=== PATIENT | male | born 1935 | race Caucasian/White ===

== ENCOUNTER → 2019-07-11 | Outpatient (CLI) | payer MEDICARE, BC | END | disposition home or self-care (01) | LOC: RAD 10:11 | PROVIDERS: ATTEND Urology | DX: C61 Malignant neoplasm of prostate (principal) | CPT/HCPCS: 78306 ×2; A9503 ==

== ENCOUNTER → 2019-11-30 | Outpatient (CLI) | payer MEDICARE, BC ==
[~2019-11-30] MED LIST: OMNIPAQUE 350 MG/ML, 150 ML BOTTLE ONE
== END | disposition home or self-care (01) ==
LOC: CFH 13:46
PROVIDERS: ATTEND Urology
DX: K76.0 Fatty (change of) liver, not elsewhere classified (principal); K57.30 Diverticulosis of large intestine without perforation or abscess without bleeding; I70.0 Atherosclerosis of aorta; N32.89 Other specified disorders of bladder; N40.0 Benign prostatic hyperplasia without lower urinary tract symptoms; Z85.46 Personal history of malignant neoplasm of prostate
CPT/HCPCS: 74178; Q9967

== ENCOUNTER 2020-02-12 14:57 | Inpatient (IN) | payer MEDICARE, BC ==
[~2020-02-12] VITALS: Ht 172.7 cm; Wt 78.3 kg
--- NOTE | 2020-02-12 14:58 | NUR ---
patient arrives from home with mayito with a recent new onset of confusion. it began last night, and states he couldn't use remote, and was forgetting how to do basic chores. he went to bed, but it began again today. he has a new onset of prostate cancer and was about to begin treatment for that.
[2020-02-12 15:58] LABS: BASOPHILS # (AUTO) 0.03 x10^3/uL (0-0.1); BASOPHILS % (AUTO) 1 % (0-1); EOSINOPHILS # (AUTO) 0.12 x10^3/uL (0-0.4); EOSINOPHILS % (AUTO) 2 % (1-7); LYMPHOCYTES # (AUTO) 1.16 x10^3/uL (1-3.4); LYMPHOCYTES % (AUTO) 21 % (22-44); MD NO; MEAN CORPUSCULAR HGB CONC 32.5 g/dL (33.2-36.2); MEAN CORPUSCULAR VOLUME 95.4 fL (81-97); MEAN PLATELET VOLUME 7.6 fL (7.4-10.4); MONOCYTES # (AUTO) 0.59 x10^3/uL (0.2-0.8); MONOCYTES % (AUTO) 11 % (2-9); NEUTROPHILS # (AUTO) 3.74 x10^3/uL (1.8-6.8); NEUTROPHILS % (AUTO) 66 % (42-75); PLATELET COUNT 197 x10^3/uL (130-400); RED BLOOD COUNT 5.13 x10^6/uL (4.38-5.82); RED CELL DISTRIBUTION WIDTH 13.5 % (9.4-14.8)
[2020-02-12 16:09] LABS: ANION GAP 4 mmol/L (5-15); CALCIUM 8.8 mg/dL (8.5-10.1); CHLORIDE 109 mmol/L (98-107)
[2020-02-12 16:17] LABS: CREATININE 0.93 mg/dL (0.7-1.3); TROPONIN I < 0.015 ng/mL (0.000-0.045)
--- NOTE | 2020-02-12 17:01 | NUR ---
patient' s son here. patient left for ct scan
--- NOTE | 2020-02-12 18:59 | NUR ---
RECEIVED REPORT FROM MULUGETA. PT SITTING IN BED, ASKING FOR FOOD, NO SIGNS OF DISTRESS.
[2020-02-12] MEDS ORDERED: SODIUM CHLORIDE FLUSH 10ML SYR IVF PRN (19:00)
[2020-02-12 19:30] LABS: MICROSCOPIC AUTO
[2020-02-12] MEDS ORDERED: LABETALOL 5MG/ML, 20ML IVPush PRN (20:00)
[2020-02-12] MEDS ORDERED: ONDANSETRON 2MG/ML, 2ML IVPush PRN (20:00)
[2020-02-12] MEDS ORDERED: MELATONIN 5 MG TABLET PO PRN (20:00)
[2020-02-12] MEDS ORDERED: ACETAMINOPHEN 325 MG TABLET PO PRN (20:00)
--- NOTE | 2020-02-12 20:18 | NUR ---
PT PROVIDED WITH FOOD, ABLE TO STAND TO USE URINAL, SITTING IN BED, PROVIDED WITH CALL LIGHT, WATCHING TV, ALL NEEDS MET AT THIS TIME.
[2020-02-12 20:36] LABS: ALBUMIN 4.1 g/dL (3.4-5.0); BILIRUBIN, DIRECT 0.2 mg/dL (0.1-0.2)
--- NOTE | 2020-02-12 20:42 | NUR ---
REPORT GIVEN TO FLOOR RN.
[2020-02-12 20:50] LABS: AMPHETAMINE SCREEN, URINE Negative (Negative); BARBITURATE SCREEN, URINE Negative (Negative); BENZODIAZEPINE SCREEN, URINE Negative (Negative); CANNABINOID SCREEN, URINE Negative (Negative); COCAINE SCREEN, URINE Negative (Negative); METHADONE SCREEN, URINE Negative (Negative); OPIATE SCREEN, URINE Negative (Negative)
[2020-02-12 21:01] LABS: BILIRUBIN,INDIRECT 0.7 mg/dL (0.0-2.0); BILIRUBIN,TOTAL 0.9 mg/dL (0.2-1.0); TOTAL PROTEIN 7.5 g/dL (6.4-8.2)
[2020-02-12] MEDS: THIAMINE 100MG TABLET PO SCH (21:54)
[2020-02-12 22:14] VITALS: BP 158/72
[2020-02-13 01:30] VITALS: BP 146/64
[2020-02-13 06:20] LABS: CHOL/HDL RATIO 3.5; LDL/HDL RATIO 2.1 (0.5-3.0)
[2020-02-13 07:25] VITALS: BP 169/79
[2020-02-13] MEDS: THIAMINE 100MG TABLET PO SCH ×2 (08:09→20:11)
[2020-02-13] MEDS ORDERED: GADOTERATE 7.5 MMOL/15 ML SYR ONE (09:51)
[2020-02-13] MEDS ORDERED: LORazepam 1MG TABLET PO PRN ×2 (13:30)
[2020-02-13] MEDS ORDERED: LORazepam 2 MG/ML, 1ML IV PRN ×3 (13:30)
[2020-02-13] MEDS ORDERED: LORazepam 0.5MG TABLET PO PRN (13:30)
[2020-02-13 14:00] VITALS: BP_SYST 123; BP_SYST 162; BP_DIAS 75; BP_DIAS 77
[2020-02-13] MEDS: CLOPIDOGREL 75 MG TABLET PO SCH (14:12)
[2020-02-13] MEDS ORDERED: OMNIPAQUE 350 MG/ML, 100ML BOTTLE ONE (15:07)
[2020-02-13 18:44] VITALS: BP 156/71
[2020-02-13] MEDS ORDERED: ATORVASTATIN 40 MG TABLET PO SCH (21:00)
[2020-02-14 01:53] VITALS: BP 149/64
[2020-02-14 07:36] VITALS: BP 154/70
[2020-02-14] MEDS ORDERED: ASPIRIN 81 MG TABLET CHEW PO SCH (09:00)
[2020-02-14] MEDS: CLOPIDOGREL 75 MG TABLET PO SCH (09:11)
[2020-02-14] MEDS: THIAMINE 100MG TABLET PO SCH (09:11)
[2020-02-14 13:13] VITALS: BP 118/69
[2020-02-14] MEDS ORDERED: ATOR40TA78 PO (14:10)
[2020-02-14] MEDS ORDERED: ASPI-515 PO (14:10)
[2020-02-14] MEDS ORDERED: CLOP75TA PO (14:10)
== END 2020-02-14 15:48 | disposition home health service (06) | DRG 64 ==
LOC: ED 16:35 → EDIP 18:33 → 4EST 21:19
PROVIDERS: ADMIT Family Medicine; ATTEND Hospitalist
DX: I63.40 Cerebral infarction due to embolism of unspecified cerebral artery (principal); G93.41 Metabolic encephalopathy; C61 Malignant neoplasm of prostate; E78.5 Hyperlipidemia, unspecified; F10.10 Alcohol abuse, uncomplicated; G31.84 Mild cognitive impairment of uncertain or unknown etiology; H91.90 Unspecified hearing loss, unspecified ear; I10 Essential (primary) hypertension; I65.22 Occlusion and stenosis of left carotid artery; J32.0 Chronic maxillary sinusitis; R31.29 Other microscopic hematuria; Z79.02 Long term (current) use of antithrombotics/antiplatelets; Z79.82 Long term (current) use of aspirin; Z85.46 Personal history of malignant neoplasm of prostate; Z86.73 Personal history of transient ischemic attack (TIA), and cerebral infarction without residual deficits; Z87.891 Personal history of nicotine dependence
CPT/HCPCS: 36415; 70450; 70498; 70553; 71045; 80048; 80061; 80076; 80307; 81001; 82140; 82607; 84443; 84484; 85025; 93005; 93306; 93356; 93880; G0378; Q9967; 92523-GN; A9575

== ENCOUNTER 2020-08-18 22:45 | Observation (INO) | payer MEDICARE, BC ==
[~2020-08-18] VITALS: Ht 175.3 cm; Wt 72.1 kg
[~2020-08-18 22:45] MED LIST changes: +APIX5TAB PO; +ASPI-515 PO; +ATOR40TA78 PO; +CLOP75TA PO; +METO25TA91 PO; -OMNIPAQUE 350 MG/ML, 150 ML BOTTLE ONE
--- NOTE | 2020-08-18 23:14 | NUR ---
Patient presents to ER c/o CP which started a couple hours ago. Patient states he's had this pain before when he was dx with afib last year in February. Patient states he was nauseous earlier when it started. Denies SOB. Pain does not radiate and is worse with palpation. Patient is in NAD. Respirations even and unlabored.
[2020-08-18] MEDS ORDERED: MORPHINE SULFATE 4 MG/ML, 1ML ONE (23:17)
[2020-08-18] MEDS ORDERED: ONDANSETRON 2MG/ML, 2ML ONE (23:17)
[2020-08-18] MEDS ORDERED: MORPHINE SULFATE 4 MG/ML, 1ML IVPush ONE (23:30)
[2020-08-18] MEDS ORDERED: ONDANSETRON 2MG/ML, 2ML IVPush ONE (23:30)
[2020-08-18 23:52] LABS: BASOPHILS % (AUTO) 1 % (0-1); EOSINOPHILS % (AUTO) 0 % (1-7); LYMPHOCYTES % (AUTO) 4 % (22-44); MEAN CORPUSCULAR HEMOGLOBIN 30.9 pg (27.5-34.5); MEAN CORPUSCULAR HGB CONC 33.7 g/dL (33.2-36.2); MONOCYTES % (AUTO) 3 % (2-9); NEUTROPHILS % (AUTO) 92 % (42-75); PLATELET COUNT 194 x10^3/uL (130-400); RED BLOOD COUNT 5.16 x10^6/uL (4.38-5.82); RED CELL DISTRIBUTION WIDTH 13.5 % (9.4-14.8)
[2020-08-19 00:02] LABS: ALBUMIN 3.9 g/dL (3.4-5.0); ANION GAP 5 mmol/L (5-15); CALCIUM 8.9 mg/dL (8.5-10.1); CHLORIDE 106 mmol/L (98-107); CREATININE 0.87 mg/dL (0.7-1.3)
[2020-08-19 00:05] LABS: TROPONIN I < 0.015 ng/mL (0.000-0.045)
[2020-08-19 00:19] LABS: MD SCAN
--- NOTE | 2020-08-19 01:00 | NUR ---
PATIENT UPDATED ON PLAN OF CARE. NO NOTED ADDITIONAL NEEDS AT THIS TIME. SON HAS LEFT ROOM FOR HOME. UPDATED FAMILY ON DISCHARGE INFORMATION, AND VISITATION POLICY. NO ADDITIONAL QUESTIONS. PATIENT STATED THAT THE MORPHINE DID WORK, BUT DID NOT ELIMINATE HIS PAIN.
[2020-08-19 01:09] LABS: ALBUMIN 3.9 g/dL (3.4-5.0); BILIRUBIN, DIRECT 0.3 mg/dL (0.1-0.2)
[2020-08-19 01:11] LABS: BILIRUBIN,INDIRECT 0.7 mg/dL (0.0-2.0); TOTAL PROTEIN 7.3 g/dL (6.4-8.2)
[2020-08-19] MEDS ORDERED: LABETALOL 5MG/ML, 20ML IVPush ONE (01:30)
[2020-08-19] MEDS ORDERED: NITROGLYCERIN OINT 2%, 1GM TP ONE ×2 (01:30→01:47)
[2020-08-19] MEDS ORDERED: MORPHINE SULFATE 4 MG/ML, 1ML IVPush ONE (01:30)
[2020-08-19] MEDS ORDERED: ONDANSETRON 2MG/ML, 2ML IVPush ONE (01:30)
[2020-08-19] MEDS ORDERED: ONDANSETRON 2MG/ML, 2ML ONE (01:46)
[2020-08-19] MEDS ORDERED: MORPHINE SULFATE 4 MG/ML, 1ML ONE (01:46)
[2020-08-19] MEDS ORDERED: LABETALOL 5MG/ML, 20ML ONE (01:47)
[2020-08-19] MEDS ORDERED: ENALAPRILAT 1.25 MG/ML, 2ML IVPush PRN (03:00)
[2020-08-19] MEDS ORDERED: ACETAMINOPHEN 325 MG TABLET PO PRN ×2 (03:00→09:00)
[2020-08-19] MEDS ORDERED: morphine SULFATE 10 MG/ML, 1ML IV PRN (03:00)
[2020-08-19] MEDS ORDERED: NITROGLYCERIN 0.4 MG BOTTLE (25 TABS) SL PRN (03:00)
[2020-08-19] MEDS ORDERED: ONDANSETRON 2MG/ML, 2ML IVPush PRN (03:00)
--- NOTE | 2020-08-19 03:04 | NUR ---
PATIENT RESTING IN BED, NO NOTED NEEDS AT THIS TIME. WILL CONTINUE TO MONITOR.
[2020-08-19] MEDS: NITROGLYCERIN OINT 2%, 1GM TP SCH ×3 (03:30→15:30)
[2020-08-19 04:04] VITALS: BP 168/72
[2020-08-19 04:35] VITALS: BP 168/72
[2020-08-19] MEDS ORDERED: METOPROLOL SUCCINATE 25 MG TAB.ER.24H PO SCH (06:00)
[2020-08-19 07:21] VITALS: BP 133/74
[2020-08-19] MEDS: APIXABAN 5 MG TABLET PO SCH ×2 (08:43→17:47)
[2020-08-19 08:48] LABS: TROPONIN I < 0.015 ng/mL (0.000-0.045)
[2020-08-19 09:28] LABS: BASOPHILS % (AUTO) 1 % (0-1); EOSINOPHILS % (AUTO) 0 % (1-7); LYMPHOCYTES % (AUTO) 5 % (22-44); MEAN CORPUSCULAR HEMOGLOBIN 31.1 pg (27.5-34.5); MEAN CORPUSCULAR HGB CONC 34.1 g/dL (33.2-36.2); MEAN PLATELET VOLUME 8.2 fL (7.4-10.4); MONOCYTES % (AUTO) 9 % (2-9); NEUTROPHILS % (AUTO) 85 % (42-75); PLATELET COUNT 174 x10^3/uL (130-400); RED BLOOD COUNT 4.97 x10^6/uL (4.38-5.82); RED CELL DISTRIBUTION WIDTH 13.2 % (9.4-14.8)
[2020-08-19 09:31] LABS: MD NO
[2020-08-19] MEDS ORDERED: NITR0.4T28 SL (09:58)
[2020-08-19] MEDS ORDERED: SODIUM CHLORIDE 0.9% 1,000 ML IV SCH ×2 (11:00→14:00)
[2020-08-19] MEDS ORDERED: FENTANYL PF 100 MCG/2ML ONE (12:50)
[2020-08-19] MEDS ORDERED: LIDOCAINE-MPF 1%, 5ML ONE (12:50)
[2020-08-19] MEDS ORDERED: HEPARIN 1,000 UNITS/ML, 10ML ONE (12:50)
[2020-08-19] MEDS ORDERED: VERAPAMIL 2.5 MG/ML, 2ML ONE (12:50)
[2020-08-19] MEDS ORDERED: MIDAZOLAM 1 MG/ML, 2ML ONE (12:50)
[2020-08-19 13:59] VITALS: BP 128/62
[2020-08-19 16:40] LABS: TROPONIN I < 0.015 ng/mL (0.000-0.045)
[2020-08-19] MEDS ORDERED: ATORVASTATIN 40 MG TABLET PO SCH (21:00)
== END 2020-08-19 17:56 | disposition home or self-care (01) ==
LOC: ED 08-19 01:32 → EDIP 08-19 01:33 → INTOOBSV 08-19 01:33 → 5SO 08-19 03:46
PROVIDERS: ADMIT Family Medicine; ATTEND Internal Medicine
DX: I25.110 Atherosclerotic heart disease of native coronary artery with unstable angina pectoris (principal); I48.0 Paroxysmal atrial fibrillation; D68.59 Other primary thrombophilia; I16.1 Hypertensive emergency; R79.89 Other specified abnormal findings of blood chemistry; E78.5 Hyperlipidemia, unspecified; I73.9 Peripheral vascular disease, unspecified; I65.29 Occlusion and stenosis of unspecified carotid artery; I10 Essential (primary) hypertension; I25.2 Old myocardial infarction; G47.30 Sleep apnea, unspecified; F10.10 Alcohol abuse, uncomplicated; Z85.46 Personal history of malignant neoplasm of prostate; Z86.73 Personal history of transient ischemic attack (TIA), and cerebral infarction without residual deficits; Z79.01 Long term (current) use of anticoagulants; Z87.891 Personal history of nicotine dependence; Z79.899 Other long term (current) drug therapy
CPT/HCPCS: 36415; 71045; 80048; 80076; 82040; 83690; 83880; 84443; 84484; 85025; 93005; 93306; 93356; 93458; 96361; 96374; 96375; 99156; 99285; C1769; C1894; G0378; J1644; J2250; J2270; J2405; J3010; J7030; Q9967